=== PATIENT | male | born 1975 | race Caucasian/White ===

== ENCOUNTER 2017-01-17 13:48 | Emergency (ER) | payer BC ==
[~2017-01-17 13:48] MED LIST: ACET500CAP PO; GOODY'S EX-STR1 EAC1 PO; LEVAQUIN750 MG PO; NICODERM C21 MG/241 TOP; P20 PO; PROVENTSOL INH; PROVHFA INH; TAMIFLU
== END 2017-01-17 15:41 | disposition home or self-care (01) ==
LOC: ER 13:48
DX: R07.81 Pleurodynia (principal); F17.200 Nicotine dependence, unspecified, uncomplicated; Z88.1 Allergy status to other antibiotic agents; Z88.8 Allergy status to other drugs, medicaments and biological substances; Z79.82 Long term (current) use of aspirin; Z79.52 Long term (current) use of systemic steroids; Z79.899 Other long term (current) drug therapy
CPT/HCPCS: 71020; 99283; J1885

== ENCOUNTER 2017-05-07 12:00 | Emergency (ER) | payer BC | END 2017-05-07 12:51 | disposition home or self-care (01) | LOC: ER 12:00 | DX: S66.911A Strain of unspecified muscle, fascia and tendon at wrist and hand level, right hand, initial encounter (principal); S60.211A Contusion of right wrist, initial encounter; J44.9 Chronic obstructive pulmonary disease, unspecified; F17.200 Nicotine dependence, unspecified, uncomplicated; Z88.1 Allergy status to other antibiotic agents; Z88.5 Allergy status to narcotic agent; Z88.8 Allergy status to other drugs, medicaments and biological substances; Z79.82 Long term (current) use of aspirin; Z79.52 Long term (current) use of systemic steroids; Z79.899 Other long term (current) drug therapy; X50.9XXA Other and unspecified overexertion or strenuous movements or postures, initial encounter; Y93.B9 Activity, other involving muscle strengthening exercises | CPT/HCPCS: 73110-RT; 99283 ==